=== PATIENT | male | born 1995 | race Caucasian/White ===

== ENCOUNTER 2017-11-20 23:30 | Emergency (ER) | payer BC ==
[2017-11-20 23:48] VITALS: BP 129/94; PULSE 86; O2SAT 99
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
== END 2017-11-21 01:24 | disposition home or self-care (01) ==
LOC: ED 23:30
DX: S80.12XA Contusion of left lower leg, initial encounter (principal); M25.562 Pain in left knee; M25.572 Pain in left ankle and joints of left foot; V29.9XXA Motorcycle rider (driver) (passenger) injured in unspecified traffic accident, initial encounter; Y93.I9 Activity, other involving external motion
CPT/HCPCS: 73562; 73590; 73610; 99283